=== PATIENT | male | born 1990 | race Caucasian/White ===

== ENCOUNTER 2018-05-05 22:12 | Inpatient (IN) | payer MEDICAID ==
[~2018-05-05] VITALS: Ht 167.6 cm; Wt 81.1 kg
[2018-05-05] MEDS ORDERED: PRAZ2CAP PO (22:55)
[2018-05-05] MEDS ORDERED: MULTCAP PO (22:56)
[2018-05-05 23:01] LABS: HEMATOCRIT 48.1 % (42.0-52.0); HEMOGLOBIN 16.4 g/dl (13.5-17.5); MEAN CORPUSCULAR HEMOGLOBIN 29.1 pg (27.0-33.0); MEAN CORPUSCULAR HGB CONC 34.1 g/dl (32.0-36.5); MEAN CORPUSCULAR VOLUME 85.3 fl (80.0-96.0); PLATELET COUNT, AUTOMATED 316 10^3/uL (150-450); RED BLOOD COUNT 5.64 10^6/uL (4.30-6.10); WHITE BLOOD COUNT 10.1 10^3/uL (4.0-10.0)
[2018-05-05 23:50] LABS: ACETAMINOPHEN LEVEL < 2.0 UG/ML (10.0-30.0); ALBUMIN 4.3 GM/DL (3.2-5.2); ALT/SGPT 27 U/L (12-78); BILIRUBIN,DIRECT 0.2 MG/DL (0.0-0.2); BILIRUBIN,TOTAL 0.5 MG/DL (0.2-1.0); BLOOD UREA NITROGEN 9 MG/DL (7-18); CALCIUM LEVEL 9.3 MG/DL (8.5-10.1); CARBON DIOXIDE LEVEL 32 MEQ/L (21-32); CHLORIDE LEVEL 102 MEQ/L (98-107); CREATININE FOR GFR 1.06 MG/DL (0.70-1.30); ETHYL ALCOHOL (ETHANOL) < 0.003 % (0.000-0.010); GLOMERULAR FILTRATION RATE > 60.0 (>60); GLUCOSE, FASTING 115 MG/DL (70-100); SALICYLATE LEVEL 1.8 MG/DL (5.0-30.0); SODIUM LEVEL 140 MEQ/L (136-145); THYROID STIMULATING HORMONE 0.131 uIU/ML (0.358-3.740); TOTAL PROTEIN 7.7 GM/DL (6.4-8.2)
[2018-05-06] MEDS ORDERED: metroNIDAZOLE 750 MG in APPROPRIATE DILUENT 1 EA IV ONE (00:15)
[2018-05-06 01:01] LABS: AMPHETAMINES LEVEL URINE POSITIVE (NEGATIVE); BARBITURATES URINE NEGATIVE (NEGATIVE); BENZODIAZEPINES URINE NEGATIVE (NEGATIVE); CANNABINOIDS URINE POSITIVE (NEGATIVE); COCAINE METABOLITE URINE NEGATIVE (NEGATIVE); METHADONE URINE NEGATIVE (NEGATIVE); OPIATES URINE NEGATIVE (NEGATIVE); PHENCYCLIDINE URINE NEGATIVE (NEGATIVE)
[2018-05-06] MEDS ORDERED: IBUPOTC PO (01:22)
[2018-05-06] MEDS ORDERED: PRAZ2CAP PO (01:22)
[2018-05-06] MEDS ORDERED: ACETAMINOPHEN TAB 650MG DOSE (2X325MG) PO PRN (01:45)
[2018-05-06] MEDS ORDERED: MOM 30ML SUSPENSION UDC PO PRN (01:45)
[2018-05-06] MEDS ORDERED: MAALOX 30 ML SUSP *UDC PO PRN (01:45)
[2018-05-06] MEDS ORDERED: traZODone 50 MG TAB PO PRN (01:45)
[2018-05-06 02:07] VITALS: BP 149/86
[2018-05-06] MEDS: NICOTINE 21MG/24HR 1 EA TRANSDERMAL TD SCH (09:00)
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
--- NOTE | 2018-05-06 11:10 | MHHPEPDOC ---
General Date Of Admission: May 05, 2018 Legal Status: 9.39 Chief Complaint "I was having SI." History of Present Illness HISTORY OF THE PRESENT ILLNESS: Patient is a 27 -year-old , male, with a history per pt of borderline personality d/o, bipolar d/o, and PTSD, SA by cutting x8 who presenting to ED after calling 911 b/c he felt suicidal with plan to cut. Pt in the ED cut his lt forearm superficially on Wednesday 05/03 as a SA (4 superficial cuts up inner forearm). Pt stated he was depressed, anxious, irritable, with insomnia due to stressors involving his girlfriend and having just been released from alf 01/26 after serving 8.5yrs on substance charge and currently being on [place], [place]ELYNE Gue[place]. Pt utox positive cannabis which he admits using 2wks ago and amphetamine which he denies ever using in his past or presently. Pt in ED also endorsed HI toward a specific dock guard but would not disclose name or plan in ED. Psychiatric Review of Systems Depression (2 or more weeks): depressed mood, insomnia/hypersomnia (insomnia), feelings of excess/guilt, difficulty concentrating, suicidal thoughts Trini (4 or more days of): irritable/elevated mood, other (reactive) PTSD: history of trauma, mood fluctuations Anxiety: situational anxiety, stressor related anxiety Anxiety/ 6 months or more of: restlessness, keyed up, difficulty concentrating, irritability, sleep disturbance, personality cluster A,BC (b) Past Psychiatric History Previous Psychiatric Diagnosis: per pt borderline personality d/o, bipolar d/o, ptsd Previous [facility] Suicide Attempts: SA 8tiimes by cutting per pt and not reported Psychiatric Follow-up: [facility] Psychiatric medications: prazosin 4mg qhs Past Medical History Medical Problems denies Head Injury: No Seizures: No Hospitalizations: Yes Surgeries: No Family Medical/Psychiatric HX Medical Problems noncontributory Psychiatric Disorders: No (unable to assess as pt left office) Addiction: No Suicide Attemps/Completions: No Addiction History nicotine, amphetamines (utox positive, denies use ever), opioids (in past), other (cannabis) Social History Childhood: born and raised [place] Abuse/Trauma: unable to assess as pt left interview angry [facility] Education: high school Employment: unemployed on medicaid Social Support: girlfriend, PO, [facility] Legal: released from alf 01/26 after serving 8.5yrs for drug charge, on parole, [place] Marital: single, never , no kids Mental Status Examination General Appearance: unkempt, disheveled, ds/not appear stated age (older), hospital scubs/clothing Build: average Demeanor: hostile Eye Contact: avoidant Activity: agitated, anxious Behavior: uncooperative, agitated, restless, other (reactive) Speech: clear, spontaneous, normal volume, reg/rate,rhythm,volume Mood: depressed, anxious, angry, irritable Mood "depressed" Affect: full, inappropriate, labile, congruent, anxious Thought Process: logical/linear, depressed, intact Thought Content (Delusions): none reported, denies SI, HI, AVH Thought Content (Other): none reported Thought Content (Aggressive): none reported Perception (Hallucinations): none reported Perception (Other): none reported Cognition (Impairment of): none reported Cognition(Intelligence Est.): average Oriented: Awake, Alert, Oriented times three Insight: fair Judgment: Fair Psychosis: Denies Diagnoses Mood d/o unspecified R/O depressive d/o vs bipolar II d/o -depressed, vs substance induced depression secondary amphetamine amphetamine/cannabis use d/o borderline personality d/o Assessment Pt seen and states he called 911 due to SI with plan to cut. States he cut last Saturday as a SA on left forearm with a blunt razor and appears superficial. Endorses depressed mood, anxiety due to stressors regarding girlfriend who is using drugs and "had a nervous breakdown." Utox positive for amphetamines and cannabis. Admits he used cannabis 2 wks ago but denies ever using amphetamines and is very upset to learn his urine is positive for it as he's on [place] after 8.5yrs. Pt now angry, uncooperative with interview, calling unit "pathetic," and refuses to attend groups b/c "I've been to them all (first time here) and I could probably teach them." He's very reactive and currently irritable. Appears anxious. Denies SI/HI at this time. Feels safe here. Will start abilify 5mg bid for mood/irritability and provide vistaril 25mg q6hr prn anxiety and zyprexa zydis 5mg q6hr prn anxiety/agitation. Initial Treatment Plan 1. Patient was admitted on a 9.39 status. 2. Complete history was obtained. 3. With patients permission, family will be contacted and database will be expanded. 4. Patients medication regimen will be reviewed and changed accordingly. 5. Patient will be provided with protected environment. 6. Patient will be treated with individual, group, and milieu therapies. 7. Patient will receive supportive psych-education. 8. Discharge planning will commence immediately. 9. Outpatient follow-up treatment will be strongly recommended. 10. The initial treatment plan will focus initially on: * Depression. * Risk for suicide. * Substance abuse. 11. abilify 5mg bid, vistaril prn anxiety, zyprexa zydis prn anxiety/agitation ESTIMATED LENGTH OF STAY: 5-7 DAYS. TIME SPENT COUNSELING AND COORDINATING INITIAL CARE: 60 minutes. Vital Signs Vital Signs Date Time Temp Pulse Resp B/P (MAP) Pulse Ox O2 Delivery O2 Flow Rate FiO2 05/06/18 07:54 Room Air 05/06/18 02:07 97.6 70 16 149/86 (107) 05/05/18 22:38 100 Laboratory Data 24H Labs Laboratory Tests 2 05/05/18 22:45: Nucleated Red Blood Cells % (auto) 0.0, Anion Gap 6L, Glomerular Filtration Rate > 60.0, Calcium Level 9.3, Aspartate Amino Transf (AST/SGOT) 23, Alanine Aminotransferase (ALT/SGPT) 27, Alkaline Phosphatase 77, Total Bilirubin 0.5, Direct Bilirubin 0.2, Total Protein 7.7, Albumin 4.3, Albumin/Globulin Ratio 1.26, Thyroid Stimulating Hormone (TSH) 0.131L, Salicylates Level 1.8L, Urine Amphetamines Screen POSITIVEH, Urine Benzodiazepines Screen NEGATIVE, Urine Opiates Screen NEGATIVE, Urine Methadone Screen NEGATIVE, Acetaminophen Level < 2.0L, Urine Barbiturates Screen NEGATIVE, Urine Phencyclidine Screen NEGATIVE, Urine Cocaine Metabolite Screen NEGATIVE, Urine Cannabinoids Screen POSITIVEH, Ethyl Alcohol Level < 0.003 CBC/BMP Laboratory Tests 05/05/18 22:45 Red Blood Count 5.64, Mean Corpuscular Volume 85.3, Mean Corpuscular Hemoglobin 29.1, Mean Corpuscular Hemoglobin Concent 34.1, Red Cell Distribution Width 12.6 Medications Scheduled Prazosin Hcl (Prazosin HCl) 2 Mg Cap, 4 MG PO QHS, (Reported) Scheduled PRN Ibuprofen (Ibuprofen) 200 Mg Tab, 800 MG PO TID PRN for PAIN, (Reported) Allergies Coded Allergies: No Known Allergies (Verified , 04/21/04) JACK WEBB DO May 06, 2018 11:10
[2018-05-06] MEDS ORDERED: hydrOXYzine 25 MG TAB PO PRN (11:15)
[2018-05-06 18:07] VITALS: BP 131/62
[2018-05-06] MEDS: PRAZOSIN 1 MG CAP PO SCH (21:01)
[2018-05-06] MEDS: OLANZapine ORAL DISINTEGRATING TAB 5MG PO PRN (21:02)
[2018-05-07 06:44] VITALS: BP 118/56
[2018-05-07 07:00] LABS: HEMATOCRIT 46.6 % (42.0-52.0); HEMOGLOBIN 15.7 g/dl (13.5-17.5); MEAN CORPUSCULAR HGB CONC 33.7 g/dl (32.0-36.5); MEAN CORPUSCULAR VOLUME 86.1 fl (80.0-96.0); PLATELET COUNT, AUTOMATED 266 10^3/uL (150-450); RED BLOOD COUNT 5.41 10^6/uL (4.30-6.10); WHITE BLOOD COUNT 6.7 10^3/uL (4.0-10.0)
--- NOTE | 2018-05-07 07:09 | ECGEPIP ---
Stationary ECG Study [facility] Test Date: 2018-05-06 Pat Name: EVITA BARBER Department: Room: [place] [address] Gender: M Assembler Cards And Announcements: : 1990 Requested By: Jasmyn Santiago Order Number: [id number] Reading MD: Tae Haynes Measurements Intervals [place] Rate: 62 P: 59 CO: 141 QRS: 82 QRSD: 108 T: 59 QT: 405 QTc: 412 Interpretive Statements SINUS RHYTHM Within normal limits for age Electronically Signed On 05-07-2018 7:09:11 EST by Tae Haynes
[2018-05-07 07:36] LABS: FREE THYROXINE INDEX 4.1 % (1.4-3.8); THYROID STIMULATING HORMONE 0.094 uIU/ML (0.358-3.740); THYROXINE (T4) 11.2 UG/DL (4.5-12.0)
[2018-05-07] MEDS: NICOTINE 21MG/24HR 1 EA TRANSDERMAL TD SCH (09:00)
--- NOTE | 2018-05-07 10:17 | MHIPNPDOC ---
[facility] Progress Note Progress Note DATE OF SERVICE: 05/07/18 HISTORY: Patient is a 27 -year-old , male, with a history per pt of borderline personality d/o, bipolar d/o, and PTSD, SA by cutting x8 who presenting to ED after calling 911 b/c he felt suicidal with plan to cut. Pt in the ED cut his lt forearm superficially on Wednesday 05/03 as a SA (4 superficial cuts up inner forearm). Pt stated he was depressed, anxious, irritable, with insomnia due to stressors involving his girlfriend and having just been released from [facility] 01/26 after serving 8.5yrs on substance charge and currently being on [place], [place]NE Gue[place]a. Pt utox positive cannabis which he admits using 2wks ago and amphetamine which he denies ever using in his past or presently. Pt in ED also endorsed HI toward a specific physician representative but would not disclose name or plan in ED. VITAL SIGNS: See below. NEW TEST RESULTS: See below. CURRENT MEDICATIONS: See below. MENTAL STATUS EXAMINATION: General Appearance: unkempt, disheveled, ds/not appear stated age (older), hospital scubs/clothing Build: average Demeanor: uninterested Eye Contact: avoidant Activity: uninterested Behavior: uncooperative, uninterested Speech: clear, spontaneous, normal volume, reg/rate,rhythm,volume Mood: uninterested, inappropriate, reactive Mood "fine" Affect: uninterested, inappropriate, reactive Thought Process: logical/linear, less depressed, intact Thought Content (Delusions): none reported, denies SI, HI, AVH Thought Content (Other): none reported Thought Content (Aggressive): none reported Perception (Hallucinations): none reported Perception (Other): none reported Cognition (Impairment of): none reported Cognition(Intelligence Est.): average Oriented: Awake, Alert, Oriented times three Insight: fair Judgment: Fair Psychosis: Denies DIAGNOSES: Mood d/o unspecified R/O depressive d/o vs bipolar II d/o -depressed, vs substance induced depression secondary amphetamine amphetamine/cannabis use d/o borderline personality d/o ASSESSMENT:Pt seen and states he's fine. Pt appears uninterested in participating in treatment mostly due to behavior as he states "this place is a joke... [facility] is [facility]". Endorses improved depressed mood, anxiety. Pt now irritable and uninterested in cooperating fully with interview and refuses to attend groups stating "I've been to them all (first time here) and I could probably teach them." He's very reactive and currently irritable. Denies SI/HI at this time. Feels safe here. States he's tolerating his medications. MANAGEMENT PLAN: continue current plan Medications: abilify 5mg bid vistaril 25mg q6hr prn anxiety zyprexa zydis 5mg q6hr prn anxiety/agitation TIME SPENT: 30 minutes. Vital Signs Vital Signs Date Time Temp Pulse Resp B/P (MAP) Pulse Ox O2 Delivery O2 Flow Rate FiO2 05/07/18 07:46 Room Air 05/07/18 06:44 98.0 75 12 118/56 (76) 05/05/18 22:38 100 Laboratory Data 24H Labs Laboratory Tests 2 05/07/18 06:38: Nucleated Red Blood Cells % (auto) 0.0, Thyroid Stimulating Hormone (TSH) 0.09 4L, Free Thyroxine Index 4.1H, Thyroxine (T4) 11.2, Triiodothyronine (T3) Uptake 37 CBC/BMP Laboratory Tests 05/07/18 06:38 Red Blood Count 5.41, Mean Corpuscular Volume 86.1, Mean Corpuscular Hemoglobin 29.0, Mean Corpuscular Hemoglobin Concent 33.7, Red Cell Distribution Width 12.9 Current Medications Current Medications Acetaminophen (Tylenol Tab) 650 mg Q6HP PRN PO HEADACHE or DISCOMFORT; Start 05/06/18 at 01:45 Al Hydrox/Mg Hydrox/Simethicone (Mylanta) 30 ml Q4HP PRN PO HEARTBURN/INDIGESTION; Start 05/06/18 at 01:45 Aripiprazole (AbiLIFY) 5 mg BID PO Last administered on 05/07/18at 09:00; Start 05/06/18 at 21:00 Home Med (Med Rec Complete!) ASDIRECTED XX ; Start 05/06/18 at 01:30; Stop 05/06/18 at 01:30; Status DC Hydroxyzine HCl (Atarax) 25 mg Q6HP PRN PO ANXIETY; Start 05/06/18 at 11:15 Magnesium Hydroxide (Milk Of Magnesia) 30 ml DAILYPRN PRN PO CONSTIPATION; Start 05/06/18 at 01:45 Nicotine (Nicoderm Cq 21mg) 1 patch DAILY TD ; Start 05/06/18 at 09:00 Olanzapine (ZyPREXA ZYDIS) 5 mg Q6HP PRN PO ANXIETY/AGITATION Last administered on 05/06/18at 21:02; Start 05/06/18 at 11:15 Prazosin HCl (Minipress) 4 mg QHS PO Last administered on 05/06/18at 21:01; Start 05/06/18 at 21:00 Trazodone HCl (Desyrel) 50 mg QHSP PRN PO INSOMNIA Last administered on 05/06/18at 21:01; Start 05/06/18 at 01:45 Allergies Coded Allergies: No Known Allergies (Verified , 04/21/04) JACK WEBB DO May 07, 2018 10:17 am
--- NOTE | 2018-05-07 11:30 | REP ---
Clinical: Abnormal thyroid function tests. Technique: Real time sorensen scale and color evaluation using linear high frequency transducer. Findings: The thyroid gland is normal in contour, size, parenchymal echogenicity and overall appearance. Right lobe measures 5.6 x 1.9 x 1.8 cm. Left lobe measures 5.1 x 1.7 x 1.3 cm. Isthmus measures 4.5 mm in width. Impression: Normal thyroid ultrasound. Electronically Signed by Raúl Ludwig MD 05/07/2018 11:23 A
[2018-05-07 18:40] VITALS: BP 130/62
[2018-05-07] MEDS ORDERED: BACITRACIN OINT 30GM TOP PRN (21:30)
[2018-05-07] MEDS: OLANZapine ORAL DISINTEGRATING TAB 5MG PO PRN (21:36)
[2018-05-07] MEDS: PRAZOSIN 1 MG CAP PO SCH (21:37)
[2018-05-08 06:24] VITALS: BP 111/56
[2018-05-08] MEDS: NICOTINE 21MG/24HR 1 EA TRANSDERMAL TD SCH (09:00)
--- NOTE | 2018-05-08 09:24 | MHIPNPDOC ---
[facility] Progress Note Progress Note DATE OF SERVICE: 05/08/18 HISTORY: Patient is a 27 -year-old , male, with a history per pt of borderline personality d/o, bipolar d/o, and PTSD, SA by cutting x8 who presenting to ED after calling 911 b/c he felt suicidal with plan to cut. Pt in the ED cut his lt forearm superficially on Wednesday 05/03 as a SA (4 superficial cuts up inner forearm). Pt stated he was depressed, anxious, irritable, with insomnia due to stressors involving his girlfriend and having just been released from [facility] 01/26 after serving 8.5yrs on substance charge and currently being on [place], [place] Gue[place]a. Pt utox positive cannabis which he admits using 2wks ago and amphetamine which he denies ever using in his past or presently. Pt in ED also endorsed HI toward a specific unarmed security guard but would not disclose name or plan in ED. VITAL SIGNS: See below. NEW TEST RESULTS: See below. CURRENT MEDICATIONS: See below. MENTAL STATUS EXAMINATION: General Appearance: unkempt, disheveled, ds/not appear stated age (older), hospital scubs/clothing Build: average Demeanor: cooperative, history of being unreliable and manipulative Eye Contact: avoidant Activity: calm Behavior: cooperative Speech: clear, spontaneous, normal volume, reg/rate,rhythm,volume Mood: constricted, appropriate, reactive Mood "alright" Affect: constricted, appropriate, reactive Thought Process: logical/linear, less depressed, intact Thought Content (Delusions): none reported, denies SI, HI, AVH Thought Content (Other): none reported Thought Content (Aggressive): none reported Perception (Hallucinations): none reported Perception (Other): none reported Cognition (Impairment of): none reported Cognition(Intelligence Est.): average Oriented: Awake, Alert, Oriented times three Insight: fair Judgment: Fair Psychosis: Denies DIAGNOSES: Mood d/o unspecified R/O depressive d/o vs bipolar II d/o -depressed, vs substance induced depression secondary amphetamine amphetamine/cannabis use d/o r/o malingering d/o borderline personality d/o ASSESSMENT:Pt seen and states he's fine. States he's tolerating his medications but is unsure if abilify is beneficial just yet. Would like to d/c zyprexa as states too sedating for him. Continues to endorse depressed mood and fleeting SI, no plan/intent. could be malingering as knows is going to senior care once d/c as PO is aware he's here and utox positive amphetamines. He's unreliable and manipulative based on history and PO. Is attending groups. Denies HI at this time. Feels safe here. MANAGEMENT PLAN: continue current plan Medications: abilify 5mg bid vistaril 25mg q6hr prn anxiety TIME SPENT: 30 minutes. Vital Signs Vital Signs Date Time Temp Pulse Resp B/P (MAP) Pulse Ox O2 Delivery O2 Flow Rate FiO2 05/08/18 06:24 97.8 56 16 111/56 (74) 05/07/18 20:26 Room Air 05/05/18 22:38 100 Current Medications Current Medications Acetaminophen (Tylenol Tab) 650 mg Q6HP PRN PO HEADACHE or DISCOMFORT; Start 05/06/18 at 01:45 Al Hydrox/Mg Hydrox/Simethicone (Mylanta) 30 ml Q4HP PRN PO HEARTBURN/INDIGE STION; Start 05/06/18 at 01:45 Aripiprazole (AbiLIFY) 5 mg BID PO Last administered on 05/08/18at 09:15; Start 05/06/18 at 21:00 Bacitracin (Bacitracin Oint) Redness to cuts on arm DAILYPRN PRN TOP Redness to cuts on arm; Start 05/07/18 at 21:30 Home Med (Med Rec Complete!) ASDIRECTED XX ; Start 05/06/18 at 01:30; Stop 05/06/18 at 01:30; Status DC Hydroxyzine HCl (Atarax) 25 mg Q6HP PRN PO ANXIETY; Start 05/06/18 at 11:15 Magnesium Hydroxide (Milk Of Magnesia) 30 ml DAILYPRN PRN PO CONSTIPATION; Start 05/06/18 at 01:45 Nicotine (Nicoderm Cq 21mg) 1 patch DAILY TD ; Start 05/06/18 at 09:00 Olanzapine (ZyPREXA ZYDIS) 5 mg Q6HP PRN PO ANXIETY/AGITATION Last administered on 05/07/18at 21:36; Start 05/06/18 at 11:15 Prazosin HCl (Minipress) 4 mg QHS PO Last administered on 05/07/18at 21:37; Start 05/06/18 at 21:00 Trazodone HCl (Desyrel) 50 mg QHSP PRN PO INSOMNIA Last administered on 05/06/18at 21:01; Start 05/06/18 at 01:45 Allergies Coded Allergies: No Known Allergies (Verified , 04/21/04) JACK WEBB DO May 08, 2018 9:24 am
[2018-05-08 18:00] VITALS: BP 142/89
[2018-05-08 21:17] VITALS: BP 180/95
[2018-05-08] MEDS: PRAZOSIN 1 MG CAP PO SCH (21:17)
[2018-05-09 06:05] VITALS: BP 116/62
[2018-05-09] MEDS: NICOTINE 21MG/24HR 1 EA TRANSDERMAL TD SCH (09:00)
--- NOTE | 2018-05-09 10:32 | MHDSPDOC ---
[facility] Discharge Summary Discharge Summary DATE OF ADMISSION: May 06, 2018 at 1:41 am DATE OF DISCHARGE: May 09, 2018 DISCHARGE DIAGNOSES: Mood d/o unspecified R/O depressive d/o vs bipolar II d/o -depressed, vs substance induced depression secondary amphetamine amphetamine/cannabis use d/o r/o malingering d/o borderline personality d/o REASON FOR ADMISSION: Patient is a 27 -year-old , male, with a history per pt of borderline personality d/o, bipolar d/o, and PTSD, SA by cutting x8 who presenting to ED after calling 911 b/c he felt suicidal with plan to cut. Pt in the ED cut his lt forearm superficially on Wednesday 05/03 as a SA (4 superficial cuts up inner forearm). Pt stated he was depressed, anxious, irrit able, with insomnia due to stressors involving his girlfriend and having just been released from [facility] 01/26 after serving 8.5yrs on substance charge and currently being on Alleene, JOCELYNE Guevara. Pt utox positive cannabis which he admits using 2wks ago and amphetamine which he denies ever using in his past or presently. Pt in ED also endorsed HI toward a specific armed security guard but would not disclose name or plan in ED. CONSULTANTS INVOLVED: none TREATMENT AND PROGRESS ON THE UNIT : Pt was admitted to [facility], seen for psychiatric assessment and started on abilify 5mg bid for mood/agitation and continued on his outpatient prazosin 4mg qhs for nightmares. He was provided vistaril 25mg q6hr prn anxietyand trazodone 50mg qhs prn insomnia. Pt found his medications beneficial and tolerated them well. He attended groups daily during his stay. His symptoms improved with treatment. On day of discharge he denied depression, anxiety, insomnia, SI/HI, hallucinations, delusions. He was discharged home with follow-up at [facility] and [facility]. He felt safe for discharge. DISCHARGE ASSESSMENT: Pt seen and states he's good and feels ready to be discharged today. States he's tolerating his medications and is finding them beneficial. Is attending groups and finding helpful. Denies depression, anxiety, insomnia, SI/HI, hallucinations, delusions. Feels safe to be discharged home today. MENTAL STATUS EXAMINATION ON DISCHARGE: General Appearance: clean, ds/not appear stated age (older), own clothing Build: average Demeanor: cooperative Eye Contact: good Activity: calm Behavior: cooperative Speech: clear, spontaneous, normal volume, reg/rate,rhythm,volume Mood: euthymic, appropriate Mood "good" Affect: euthymic, appropriate Thought Process: logical/linear, intact Thought Content (Delusions): none reported, denies SI, HI, AVH Thought Content (Other): none reported Thought Content (Aggressive): none reported Perception (Hallucinations): none reported Perception (Other): none reported Cognition (Impairment of): none reported Cognition(Intelligence Est.): average Oriented: Awake, Alert, Oriented times three Insight: good Judgment: good Psychosis: Denies MEDICATIONS ON DISCHARGE: abilify 5mg bid vistaril 25mg q6hr prn anxiety prazosin 4mg qhs trazodone 50mg qhs prn insomnia PLAN/FOLLOWUP ARRANGEMENTS: D/c home with follow-up at [facility] and [facility] The amount of time spent in the coordination of care for this patient was approximately 30 minutes. Vital Signs/I&Os Vital Signs Date Time Temp Pulse Resp B/P (MAP) Pulse Ox O2 Delivery O2 Flow Rate FiO2 05/09/18 06:05 99.0 64 18 116/62 (80) 05/07/18 20:26 Room Air 05/05/18 22:38 100 Medications Scheduled Aripiprazole (Abilify) 10 Mg Tab, 5 MG PO BID for bipolar, #5 Prazosin Hcl (Prazosin HCl) 2 Mg Cap, 4 MG PO QPM for nightmares, #20 Scheduled PRN Hydroxyzine HCl (Hydroxyzine HCl) 25 Mg Tab, 25 MG PO Q6HP PRN for ANXIETY, #30 Ibuprofen (Ibuprofen) 200 Mg Tab, 800 MG PO TID PRN for PAIN, (Reported) Trazodone HCl (Trazodone HCl) 50 Mg Tab, 50 MG PO QHSP PRN for INSOMNIA, #10 Allergies Coded Allergies: No Known Allergies (Verified , 04/21/04) JACK WEBB DO May 09, 2018 10:32 am
[2018-05-09] MEDS ORDERED: TRAZO50TA PO (10:36)
[2018-05-09] MEDS ORDERED: ABIL10TA9 PO (10:36)
[2018-05-09] MEDS ORDERED: HYDR-3363 PO (10:36)
[2018-05-09] MEDS ORDERED: PRAZ2CAP PO (10:37)
[2018-05-09] MEDS ORDERED: ABIL1TAB11 PO (14:08)
== END 2018-05-09 12:00 | disposition home or self-care (01) | DRG 753 ==
LOC: M ED 22:12 → M ED INP 05-06 01:41 → M PSY 05-06 02:17
PROVIDERS: ADMIT Psychiatry & Neurology Psychiatry; ATTEND Psychiatry & Neurology Psychiatry
DX: F39 Unspecified mood [affective] disorder (principal); F60.3 Borderline personality disorder; F12.10 Cannabis abuse, uncomplicated; F15.10 Other stimulant abuse, uncomplicated

== ENCOUNTER → 2018-05-19 | Outpatient (CLI) | payer OTHER ==
[~2018-05-19] MED LIST: ABIL10TA9 PO; ABIL1TAB11 PO; HYDR-3363 PO; IBUPOTC PO; MULTCAP PO; PRAZ2CAP PO; TRAZO50TA PO
--- NOTE | 2018-05-20 02:28 | REP ---
Clinical: Trauma. Contusion. Technique: AP, lateral, bilateral oblique views of the right hand. Findings: There is a comminuted mildly angulated fracture involving the proximal aspect of the fifth metacarpal bone which appears to run to the articular surface. Overlying soft tissue swelling noted. Impression: Comminuted intra-articular fracture at the base of the fifth metacarpal bone. Electronically Signed by Raúl Ludwig MD 05/20/2018 02:20 A
== END ==
LOC: M WUC 10:46
PROVIDERS: ATTEND Nurse Practitioner Primary Care
DX: S62.316A Displaced fracture of base of fifth metacarpal bone, right hand, initial encounter for closed fracture (principal); X58.XXXA Exposure to other specified factors, initial encounter; Y92.9 Unspecified place or not applicable

== ENCOUNTER → 2018-06-06 | Outpatient (CLI) | payer OTHER ==
--- NOTE | 2018-06-06 12:18 | REP ---
CT STUDY OF THE RIGHT HAND WITHOUT CONTRAST: HISTORY: Displaced fracture base of the 5th metacarpal. Comparison radiographs May 19, 2018. FINDINGS: CT study confirms the presence of an acute comminuted fracture in the proximal 5th metacarpal. There is a component of the fracture which extends transversely across the diametaphyseal junction. There is also a sagittally oriented component of fracture which extends into the proximal 5th carpometacarpal articulation. There is a 1 mm step-off at the two fragments of the proximal end of the 5th metacarpal at this level. There is no evidence of fracture of the adjacent hamate or any of the other carpal bones. No other acute fracture is seen. There is evidence of old post-traumatic deformity consistent with healed fractures of the 3rd and 4th metacarpals. Study is otherwise unremarkable. IMPRESSION: Comminuted intra-articular slightly impacted fracture of the proximal end of the 5th metacarpal. Old healed post-traumatic deformity involving the 4th and 3rd metacarpals. No other acute bony abnormality. Electronically Signed by Warren Santana MD 06/06/2018 02:36 P
== END ==
LOC: M RAD 10:21
PROVIDERS: ATTEND Orthopaedic Surgery
DX: S62.316A Displaced fracture of base of fifth metacarpal bone, right hand, initial encounter for closed fracture (principal); X58.XXXA Exposure to other specified factors, initial encounter; Y92.9 Unspecified place or not applicable

== ENCOUNTER 2018-10-24 15:31 | Inpatient (IN) | payer MEDICAID, OTHER ==
[~2018-10-24] VITALS: Ht 170.2 cm; Wt 82.4 kg
[~2018-10-24 15:31] MED LIST changes: +TRAZ1TAB10 PO; -TRAZO50TA PO
[2018-10-24 16:07] LABS: HEMATOCRIT 47.3 % (42.0-52.0); HEMOGLOBIN 16.5 g/dl (13.5-17.5); MEAN CORPUSCULAR HEMOGLOBIN 29.7 pg (27.0-33.0); MEAN CORPUSCULAR HGB CONC 34.9 g/dl (32.0-36.5); MEAN CORPUSCULAR VOLUME 85.2 fl (80.0-96.0); PLATELET COUNT, AUTOMATED 188 10^3/uL (150-450); RED BLOOD COUNT 5.55 10^6/uL (4.30-6.10); WHITE BLOOD COUNT 5.9 10^3/uL (4.0-10.0)
[2018-10-24 16:35] LABS: AMPHETAMINES LEVEL URINE NEGATIVE (NEGATIVE); BARBITURATES URINE NEGATIVE (NEGATIVE); BENZODIAZEPINES URINE NEGATIVE (NEGATIVE); CANNABINOIDS URINE NEGATIVE (NEGATIVE); COCAINE METABOLITE URINE NEGATIVE (NEGATIVE); METHADONE URINE NEGATIVE (NEGATIVE); OPIATES URINE NEGATIVE (NEGATIVE); PHENCYCLIDINE URINE NEGATIVE (NEGATIVE)
[2018-10-24 16:54] LABS: ACETAMINOPHEN LEVEL < 2.0 UG/ML (10.0-30.0); ALBUMIN 4.3 GM/DL (3.2-5.2); ALT/SGPT 36 U/L (12-78); BILIRUBIN,DIRECT < 0.1 MG/DL (0.0-0.2); BILIRUBIN,TOTAL 0.3 MG/DL (0.2-1.0); BLOOD UREA NITROGEN 12 MG/DL (7-18); CALCIUM LEVEL 9.3 MG/DL (8.5-10.1); CARBON DIOXIDE LEVEL 29 MEQ/L (21-32); CHLORIDE LEVEL 106 MEQ/L (98-107); CREATININE FOR GFR 1.19 MG/DL (0.70-1.30); ETHYL ALCOHOL (ETHANOL) < 0.003 % (0.000-0.010); GLOMERULAR FILTRATION RATE > 60.0 (>60); GLUCOSE, FASTING 103 MG/DL (70-100); POTASSIUM SERUM 4.2 MEQ/L (3.5-5.1); SALICYLATE LEVEL 2.4 MG/DL (5.0-30.0); SODIUM LEVEL 142 MEQ/L (136-145); THYROID STIMULATING HORMONE 0.697 uIU/ML (0.358-3.740); TOTAL PROTEIN 7.5 GM/DL (6.4-8.2)
[2018-10-24] MEDS ORDERED: PRAZ2CAP PO (19:05)
[2018-10-24] MEDS ORDERED: REME30TA PO (19:05)
[2018-10-24] MEDS ORDERED: traZODone 50 MG TAB PO PRN (20:15)
[2018-10-24] MEDS ORDERED: ACETAMINOPHEN TAB 650MG DOSE (2X325MG) PO PRN (20:15)
[2018-10-24] MEDS ORDERED: MAALOX 30 ML SUSP *UDC PO PRN (20:15)
[2018-10-24] MEDS ORDERED: MOM 30ML SUSPENSION UDC PO PRN (20:15)
[2018-10-24] MEDS ORDERED: PRAZOSIN 1 MG CAP PO SCH (21:00)
[2018-10-24] MEDS ORDERED: QUEtiapine FUMARATE 200 MG TAB PO ONE (21:45)
[2018-10-25] MEDS: LORazepam 1 MG TAB PO PRN (21:39)
[2018-10-25] MEDS: zolPIDEM TARTRATE 5 MG TAB PO PRN (21:39)
--- NOTE | 2018-10-26 09:15 | MHHPE ---
DATE OF ADMISSION: 10/24/2018 CURRENT MEDICATION: - prazosin 4 mg at bedtime - Remeron 30 mg at bedtime CHIEF COMPLAINT: Patient referred by outpatient therapist for suicidal ideation. HISTORY OF PRESENT ILLNESS: This is a 28-year-old, single, white male currently homeless with a history of bipolar disorder and post traumatic stress disorder (PTSD). The patient was recently here at [facility] ([facility]) 05/06/2018 through 05/09/2018 under the care of Dr. Dillard. The patient was treated with Abilify 5 mg twice a day and prazosin 4 mg at bedtime at that time. The patient just got [facility] from [facility] for a [facility] violation. The patient reported suicidal ideation to his therapist who referred him here to the emergency room where he was admitted. The precipitating stressor appears to be his housing situation and the fact that he is having trouble adjusting after being in [facility]. The patient currently denies having any depressive symptoms. He denies any suicidal thoughts as well. He denies being a danger to others. He denies any recent manic symptoms. The patient wants to be released back to the community, but realizes that this may not occur until early next week. The patient was given Seroquel 200 mg at bedtime. He apparently did comply, but complains that it caused severe restless legs. He recently had been on Abilify from his previous admission, but complains that the Abilify was ineffective. The patient was given Remeron while in [facility], but claims that the Remeron was not helpful and does not wish to continue it. He also refuses to take the prazosin as well, claiming he does not want any psychiatric medication during his admission here. The patient states his appetite is fine. He claims his weight is stable. He does report having chronic insomnia. He claims the only medications that work for him are Ambien for sleep and Adderall. He refuses any other psychotropics. He minimizes all other psychiatric symptoms. The patient is a poor historian and refuses to cooperate with obtaining any further background information. The emergency room record does report that he had multiple suicidal plans. He has history of multiple suicide attempts as well dating back to age 13 and his most recent being an overdose in 2017. The patient currently is in outpatient treatment at [facility] and [facility]. PAST PSYCHIATRIC HISTORY: The patient was hospitalized here back in April as mentioned above. Other records are not available. The patient is a poor historian. He gets quite irritable and refuses to provide any further background information. According to old records, he has been treated at [facility] in the past. MEDICAL HISTORY: The patient denies. ALLERGIES: None noted. LEGAL HISTORY: Patient just released from [facility]. He is on parole at present. CHEMICAL DEPENDENCY: According to old records, he has a long history of substance use. The patient refuses to provide any further information. SOCIAL HISTORY: The patient again refuses to cooperate. According to old records from Dr. Dillard, he was born and raised in [place]. At that time, he was living at [facility]. He is a high school graduate. He has no recent work history. He has never been and has no children. No other social history is available. FAMILY PSYCHIATRIC HISTORY: Unknown. MENTAL STATUS EXAMINATION: The patient appears alert and oriented, but is uncooperative. He is very irritable and refuses to provide any background information. He denies feeling depressed. Affect does appear angry and hostile. He denies hearing voices. No overt signs of paranoia or thought disorder. Insight appears limited. Judgment appears poor. No signs of psychosis. Impulse control appears questionable. Grooming and hygiene appear adequate. No signs of organicity or cognitive deficits. ASSESSMENT: The patient has history of bipolar disorder. He does not give a clear history of any recent manic symptoms. He has been reporting depressive symptoms and suicidal thoughts to his outpatient therapist, but minimizes this at this time. He refuses to consider any trial on appropriate antidepressants or mood stabilizers. DIAGNOSES: Bipolar disorder. Post traumatic stress disorder. Rule out borderline personality disorder. LENGTH OF STAY: 3-5 days. PLAN: Discontinue Seroquel and Abilify per his request. Encourage involvement in hospital milieu. Staff to start working on discharge planning.
[2018-10-26] MEDS: LORazepam 1 MG TAB PO PRN ×3 (10:01→22:02)
[2018-10-26 18:42] VITALS: BP 109/60
[2018-10-26] MEDS ORDERED: NICOTINE 21MG/24HR 1 EA TRANSDERMAL TD ONE (19:00)
[2018-10-26] MEDS: zolPIDEM TARTRATE 5 MG TAB PO PRN (22:01)
[2018-10-26] MEDS: NICOTINE POLACRILEX 2 MG GUM PO PRN (23:31)
[2018-10-27 06:39] VITALS: BP 125/59
[2018-10-27] MEDS: LORazepam 1 MG TAB PO PRN (08:02)
[2018-10-27] MEDS: NICOTINE POLACRILEX 2 MG GUM PO PRN (08:59)
[2018-10-27] MEDS ORDERED: NICOTINE 21MG/24HR 1 EA TRANSDERMAL TD SCH (09:00)
--- NOTE | 2018-10-27 09:42 | MHIPNPDOC ---
[facility] Progress Note Vital Signs Vital Signs Date Time Temp Pulse Resp B/P (MAP) Pulse Ox O2 Delivery O2 Flow Rate FiO2 10/27/18 06:39 98.1 70 14 125/59 (81) 10/24/18 15:43 98 Room Air Current Medications Current Medications Medications (Trade) Dose Ordered Sig/Kristine Route PRN Reason Start Time Stop Time Status Last Admin Dose Admin Acetaminophen (Tylenol Tab) 650 mg Q6HP PRN PO HEADACHE or DISCOMFORT 10/24/18 20:15 Al Hydrox/Mg Hydrox/Simethicone (Mylanta) 30 ml Q4HP PRN PO HEARTBURN/INDIGESTION 10/24/18 20:15 Aripiprazole (AbiLIFY) 5 mg BID PO 10/24/18 21:00 10/25/18 12:15 DC Home Med (Med Rec Complete!) ASDIRECTED XX 10/24/18 19:15 10/24/18 19:15 DC Lorazepam (Ativan) 1 mg Q6HP PRN PO ANXIETY/AGITATION 10/24/18 20:15 10/27/18 08:02 Magnesium Hydroxide (Milk Of Magnesia) 30 ml DAILYPRN PRN PO CONSTIPATION 10/24/18 20:15 Nicotine (Nicoderm Cq 21mg) 1 patch DAILY TD 10/27/18 09:00 Nicotine (Nicorette) 4 mg Q2HP PRN PO NICOTINE WITHDRAWAL 10/26/18 22:00 10/27/18 08:59 Prazosin HCl (Minipress) 2 mg QHS PO 10/24/18 21:00 10/25/18 12:15 DC Trazodone HCl (Desyrel) 50 mg QHSP PRN PO INSOMNIA 10/24/18 20:15 Cancel Zolpidem Tartrate (Ambien) 5 mg QHSP PRN PO SLEEP 10/25/18 16:45 10/26/18 22:01 Allergies Coded Allergies: trazodone (Verified Adverse Reaction, Intermediate, PRIAPISM, 10/24/18) oxcarbazepine (Verified Adverse Reaction, Mild, NAUSEA, LIGHTHEADEDNESS, 10/24/18) ALVIN WALDEN DO Oct 27, 2018 09:42
[2018-10-27] MEDS ORDERED: VANICREAM MOISTURIZING SKIN CREAM 113GM TUBE TOP PRN (10:15)
--- NOTE | 2018-10-27 11:39 | MHDSPDOC ---
[facility] Discharge Summary Discharge Summary DATE OF ADMISSION: Oct 24, 2018 at 20:14 DATE OF DISCHARGE: 10/27/18 Date of Service: 10/27/2018 Diagnoses Unspecified trauma/stressor-related disorder. Antisocial personality disorder. Polysubstance use disorder. History of Present Illness The patient a 28-year-old man presented to [facility] after being referred by his outpatient nurse practitioner due to a reported recent history of suicidal thoughts. The patient upon presentation was fairly upset and did not want to talk to the initial board winder as he felt that his admission was unj ustified. He had been diagnosed with bipolar on admission, however, he has notably been released from senior living and has had some adjustment issues. He reported that his suicidality was several days prior to his presentation to his outpatient nurse practitioner and was unclear as to why he was admitted for suicidality that was not present upon admission by his report. Consultants Involved Hospitalist/PCP screening Treatment and Progress On The Unit Patient was admitted to the unit and subsequently reported his medication started on in the senior living namely Remeron and prazosin were unhelpful and he did not wish to continue them. He was started on Ativan and zolpidem for sleep and anxiety of which he found helpful, however, he was made clear that these would not be continued as outpatient. The patient reported that he wished to go after he had presented and he already had been observed for roughly three days in the hospital setting demonstrating no suicidality or homicidality, his pressured speech was not present on the day of discharge and thus due to these criteria and his notable ability to generally attendant to needs, he was discharged in good ruchi as he elect against further voluntary admission. He declined all medication changes other than Ativan and Ambien of which he was explained these would be inappropriate as an outpatient due to his reported suicidal thoughts in the past of overdose, his supplies of medications were destroyed as he reports he does not wish to take them as a means of ensuring better safety. The patient was notably irritable at times, but was never aggressive or out of behavioral control. His history does suggest a general predisposition towards antisocial personality traits with a tinge of trauma-related hypervigilance. Discharge Assessment Patient a 28-year-old man with antisocial personality disorder and possibly trauma-related disorder is seen and observed on the unit. He declines all medications other than addictive medications, which would be consistent with his history of polysubstance use. He does not demonstrate concerning behavior enough on the unit to justify further involuntary stay and is discharged in good ruchi as he wishes to be treated as an outpatient. Mental Status Examination General: Well dressed with good hygiene Speech: Spontaneous and fluid Thought processes: Linear and logical MSK: Smooth and coordinated gait, no signs of tremors or involuntary orofacial movements Thought content: Future orientated Abstract reasoning, and computation: Intact Description of associations: Intact Description of abnormal or psychotic thoughts: Denies any suicidal or homicidal ideation. Denies any auditory or visual hallucinations. Does not appear to be responding to internal stimuli. Does not appear to be endorsing any bizarre or p aranoid ideation. Judgment: fair Insight: fair Orientation: Alert and orientated 3 Cognition: Grossly normal Recent and remote memory: Intact Attention span and concentration: Intact Fund of knowledge: Adequate Mood: "okay" Affect: Euthymic with a full range Follow Up The social work team worked during the predischarge meeting in order to evaluate for further issues of lethality address them fully before discharge. They worked on safety planning with the patient's family members in order to ensure that the patient will have a safe and effective discharge. Time Spent The amount of time spent in the coordination of care for this patient was approximately 30 minutes. M Vital Signs/I&Os Vital Signs Date Time Temp Pulse Resp B/P (MAP) Pulse Ox O2 Delivery O2 Flow Rate FiO2 10/27/18 06:39 98.1 70 14 125/59 (81) 10/24/18 15:43 98 Room Air Medications Scheduled PRN Nicotine Polacrilex (Nicotine Gum) 2 Mg Gum, 4 MG PO Q2HP PRN for NICOTINE WITHDRAWAL for 30 Days, #1 Allergies Coded Allergies: trazodone (Verified Adverse Reaction, Intermediate, PRIAPISM, 10/24/18) oxcarbazepine (Verified Adverse Reaction, Mild, NAUSEA, LIGHTHEADEDNESS, 10/24/18) ALVIN WALDEN DO Oct 27, 2018 11:39
[2018-10-27] MEDS ORDERED: NICO2GUM PO (11:44)
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
--- NOTE | 2018-10-27 20:04 | MHIPN ---
DATE: 10/26/2018 VITAL SIGNS: Not obtained. MEDICATIONS: - Ambien 5 mg at bedtime as needed - Ativan 1 mg every six hours as needed HISTORY OF PRESENT ILLNESS: The patient states that he is appreciative of being given the sleeping medication last night. He slept much better. The patient was given Ativan at the same time as the Ambien. The patient requests being prescribed both upon discharge. The patient is advised that these medications for inpatient care only. The patient does not like psychotropic medication. The patient has been diagnosed with bipolar disorder but currently minimizes any history of mood swings. He states that his mood is much better today. His precipitating stressor was homelessness. 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 The patient states he is less frustrated about being locked up here on the inpatient mental health unit ([facility]). The patient states he is motivated to return to the community which will be addressed by the treatment team tomorrow. The patient has no other complaints. MENTAL STATUS EXAMINATION: The patient is alert and oriented. He is much more cooperative today. He is less irritable. Eye contact is much improved. Affect is much improved. The patient is able to smile. No signs of iris. The patient denies feeling depressed. He denies any suicidality either. Insight and judgment remains limited but no current signs of dangerousness. The patient denies any psychotic symptoms. He denies hearing voices. No overt signs of paranoia. No signs of thought disorder. No signs of cognitive deficits. ASSESSMENT: The patient's mood is relatively stable today without any mood stabilizers. DIAGNOSIS: Bipolar disorder, PTSD PLAN: Continue present management. The patient to meet with treatment team tomorrow regarding possible discharge plans. The patient is encouraged to be involved in the hospital milieu. SO
== END 2018-10-27 15:04 | disposition home or self-care (01) | DRG 755 ==
LOC: M ED 18:22 → M ED INP 20:14 → M PSY 22:40
PROVIDERS: ADMIT Psychiatry & Neurology Psychiatry; ATTEND Psychiatry & Neurology Addiction Medicine
DX: F43.9 Reaction to severe stress, unspecified (principal); F60.2 Antisocial personality disorder; F19.10 Other psychoactive substance abuse, uncomplicated; F17.200 Nicotine dependence, unspecified, uncomplicated; Z91.5 Personal history of self-harm; Z65.2 Problems related to release from prison; Z87.81 Personal history of (healed) traumatic fracture

== ENCOUNTER 2024-11-19 04:31 | Inpatient (IN) | payer MEDICAID ==
[~2024-11-19] VITALS: Ht 175.3 cm; Wt 90.0 kg
[~2024-11-19 04:31] MED LIST changes: +MIRT-89 PO; +NICO2GUM PO
[2024-11-19 04:53] LABS: VENOUS BASE EXCESS 4.7 (-2.0-2.0); VENOUS HCO3 30.6 MMOL/L (23.0-27.0); VENOUS O2 SATURATION 78.3 % (60.0-80.0); VENOUS PARTIAL PRESSURE CO2 49.9 mmHg (38.0-50.0); VENOUS PARTIAL PRESSURE O2 40.4 mmHg (30.0-50.0); VENOUS PH 7.405 UNITS (7.330-7.430); VENOUS STANDARD HCO3 28.1 MMOL/L; VENOUS TOTAL CO2 32.1 MMOL/L (24.0-28.0)
[2024-11-19] MEDS: NS (Normal Saline) 0.9% 1,000 ML IV ONE (04:56)
[2024-11-19 04:57] LABS: BASO # 0.0 10^3/uL (0.0-0.2); BASO % 0.2 % (0.0-1.0); EOS # 0.1 10^3/uL (0.0-0.5); EOS % 1.1 % (0.0-3.0); LYMPH # 1.4 10^3/uL (1.5-5.0); LYMPH % 24.6 % (24.0-44.0); MONO # 0.7 10^3/uL (0.0-0.8); MONO % 12.0 % (2.0-8.0); NEUTROPHILS # 3.5 10^3/uL (1.5-8.5); NEUTROPHILS % 61.6 % (36.0-66.0); PLATELET COUNT, AUTOMATED 221 10^3/uL (150-450)
[2024-11-19] MEDS ORDERED: ISOVUE-370 76% 100 ML VIAL As Ordered ONE (05:08)
[2024-11-19 05:21] LABS: ALT/SGPT 35 U/L (7.0-40); AST/SGOT 37 U/L (<34); CALCIUM LEVEL 9.1 MG/DL (8.5-10.1); CARBON DIOXIDE LEVEL 31 MMOL/L (20-31); CHLORIDE LEVEL 104 MMOL/L (98-107); CREATININE FOR GFR 0.83 MG/DL (0.70-1.30); GLOMERULAR FILTRATION RATE > 90.0 (>60); POTASSIUM SERUM 3.9 MMOL/L (3.5-5.1); SALICYLATE LEVEL < 3.0 MG/DL (<30); SODIUM LEVEL 144 MMOL/L (136-145)
[2024-11-19 05:23] LABS: ETHYL ALCOHOL (ETHANOL) < 0.003 % (0.000-0.010)
[2024-11-19 05:25] LABS: CPK CREATINE PHOSPHOKINASE 342 U/L (46-171)
[2024-11-19] MEDS: DERMABOND TOPICAL SKIN ADHESIVE TOP ONE (07:52)
[2024-11-19 08:21] LABS: BARBITURATES URINE NEGATIVE (NEGATIVE); BENZODIAZEPINES URINE NEGATIVE (NEGATIVE); COCAINE METABOLITE URINE NEGATIVE (NEGATIVE); METHADONE URINE NEGATIVE (NEGATIVE); OPIATES URINE NEGATIVE (NEGATIVE)
[2024-11-19 08:22] LABS: PHENCYCLIDINE URINE NEGATIVE (NEGATIVE)
[2024-11-19 08:23] LABS: AMPHETAMINES LEVEL URINE POSITIVE (NEGATIVE); CANNABINOIDS URINE POSITIVE (NEGATIVE)
[2024-11-19] MEDS ORDERED: HOME MED LIST COMPLETE! XX SCH (11:35)
[2024-11-19] MEDS ORDERED: MOM 30 ML SUSPENSION UDC PO PRN (13:10)
[2024-11-19] MEDS ORDERED: MAALOX 30 ML SUSP *UDC PO PRN (13:10)
[2024-11-19] MEDS ORDERED: IBUPROFEN 400 MG TAB PO PRN (13:10)
[2024-11-19] MEDS ORDERED: ACETAMINOPHEN 325 MG TAB PO PRN (13:10)
[2024-11-19 14:20] VITALS: BP 131/78; TEMP 97.8; O2SAT 99
[2024-11-19 19:00] LABS: C REACTIVE PROTEIN QUANTITATIV 0.85 MG/DL (<1.0)
[2024-11-19] MEDS: BACTRIM 160MG/800MG DS TAB PO SCH (21:42)
[2024-11-20] MEDS: NICOTINE 7 MG/24 HR TRANSDERMAL TD SCH (12:09)
[2024-11-20] MEDS ORDERED: BENZTROPINE 0.5 MG TAB PO PRN (13:45)
[2024-11-20] MEDS: PILL CUTTER 1 EACH XX PRN (15:26)
[2024-11-20] MEDS: LORazepam 0.5 MG TAB PO PRN (15:26)
[2024-11-20] MEDS: PALIPERIDONE 3MG ER TAB PO SCH (15:27)
[2024-11-20] MEDS: FLUZONE VACCINE TRIVALENT PF(25-26) 0.5ML SYRINGE IM.IMMUN ONE (15:29)
[2024-11-20 15:34] VITALS: BP 133/89; TEMP 98; O2SAT 96
[2024-11-20] MEDS: PRAZOSIN 1 MG CAP PO SCH (20:52)
[2024-11-21 06:24] VITALS: BP 115/57; TEMP 97.5; O2SAT 97
[2024-11-21] MEDS: DIVALPROEX 250 MG TAB PO SCH (10:36)
[2024-11-21 15:54] VITALS: BP 133/88; TEMP 97.9; O2SAT 100
[2024-11-21] MEDS: PALIPERIDONE 6MG ER TAB PO SCH (20:48)
[2024-11-22 06:35] VITALS: BP 125/58; TEMP 97.9; O2SAT 99
[2024-11-22 21:10] VITALS: BP 125/78
[2024-11-23 06:35] VITALS: BP 103/56; TEMP 97.8; O2SAT 95
[2024-11-23] MEDS ORDERED: PRAZ2CAP PO (09:59)
[2024-11-23] MEDS ORDERED: PALI1TAB3 PO (09:59)
[2024-11-23] MEDS ORDERED: BACTDSTA PO (09:59)
[2024-11-23] MEDS ORDERED: BACI50OI TOP (09:59)
[2024-11-23] MEDS ORDERED: BENZ0.5T2 PO (09:59)
== END 2024-11-23 11:30 | DRG 753 ==
LOC: M ED 08:57 → M ED INP 13:09 → M PSY 14:16
PROVIDERS: ADMIT General Practice; ATTEND Psychiatry & Neurology Psychiatry
DX: F31.0 Bipolar disorder, current episode hypomanic (principal); S11.91XA Laceration without foreign body of unspecified part of neck, initial encounter; F15.129 Other stimulant abuse with intoxication, unspecified; F60.3 Borderline personality disorder; X78.9XXA Intentional self-harm by unspecified sharp object, initial encounter; Y92.9 Unspecified place or not applicable; Y93.9 Activity, unspecified; Y99.8 Other external cause status; F17.210 Nicotine dependence, cigarettes, uncomplicated; S51.812A Laceration without foreign body of left forearm, initial encounter; F43.10 Post-traumatic stress disorder, unspecified; F12.10 Cannabis abuse, uncomplicated; Z91.51 Personal history of suicidal behavior; Z59.00 Homelessness unspecified; Z65.2 Problems related to release from prison; Z56.0 Unemployment, unspecified; Z88.8 Allergy status to other drugs, medicaments and biological substances